=== PATIENT | female | born 1960 | race Caucasian/White ===

== ENCOUNTER 2021-11-05 14:03 | Emergency (ER) | payer OTHER ==
[~2021-11-05] VITALS: Ht 165.1 cm; Wt 70.3 kg
[2021-11-05] MEDS ORDERED: SODIUM CHLORIDE 0.9% 1,000 ML IV ONE (14:45)
[2021-11-05 15:26] LABS: Basophils # (auto) 0 10 ^3/uL (0-0.2); Basophils % (auto) 0.4 % (0.0-2.0); Eosinophils # (auto) 0 10 ^3/uL (0-0.8); Eosinophils % (auto) 0.1 % (0.0-7.0); Hemoglobin 11.5 g/dL (12.2-16.2); Mean Corpuscular Hemoglobin 28.7 pg (28.0-32.0); Mean Corpuscular Hgb Conc. 33.9 g/dL (32.0-36.0); Mean Corpuscular Volume 84.9 fL (80.0-100.0); Monocytes # (auto) 0.6 10 ^3/uL (0-1.3); Monocytes % (auto) 5.6 % (0.0-12.0); Neutrophils # (auto) 8.4 10 ^3/uL (1.6-8.6); Neutrophils % (auto) 83.9 % (37.0-80.0); Nucleated Red Blood Cells % 0.1 %; Red Cell Distribution Width 14.4 % (11.8-14.3); White Blood Cell 10.1 10^3/uL (4.4-10.8)
[2021-11-05 15:43] LABS: Albumin 2.4 g/dL (3.4-5.0); BUN/Creatinine Ratio 17.5; Calcium 8.4 mg/dL (8.5-10.1); Potassium 3.7 mmol/L (3.5-5.1)
[2021-11-05 15:46] LABS: Bilirubin, Total 0.4 mg/dL (0.2-1.0); Total Protein 5.9 g/dL (6.4-8.2)
[2021-11-05] MEDS ORDERED: cefTRIAXone 1GM/50ML D5W 50 ML IV ONE (17:15)
[2021-11-05] MEDS ORDERED: AZITHROMYCIN 500MG/ 250ML 250 ML IV ONE ×2 (17:15→18:30)
[2021-11-05 17:16] LABS: Urine Bacteria NONE SEEN /hpf (None Seen); Urine Blood Negative /uL (Negative); Urine Specific Gravity 1.018 (1.001-1.035); Urine WBC 2 /hpf (0 - 5)
[2021-11-05 18:00] VITALS: BP 113/64
[2021-11-05] MEDS ORDERED: PROM2SYP2 PO (18:17)
[2021-11-05] MEDS ORDERED: CEFD300C2 PO (18:17)
== END 2021-11-05 19:23 | disposition home or self-care (01) ==
LOC: ER 14:03 → EDBD 14:03 → ER 16:51
DX: J18.9 Pneumonia, unspecified organism (principal); E43 Unspecified severe protein-calorie malnutrition; E05.80 Other thyrotoxicosis without thyrotoxic crisis or storm; N30.90 Cystitis, unspecified without hematuria; Z88.2 Allergy status to sulfonamides; Z88.6 Allergy status to analgesic agent; Z85.118 Personal history of other malignant neoplasm of bronchus and lung
CPT/HCPCS: 36415; 71046; 80053; 81001; 83735; 84443; 84484; 85025; 87040; 93005; 96361; 96365; 96375; 99285; J0456; J0696; J7030; 96367

== ENCOUNTER 2021-11-12 14:59 | Inpatient (IN) | payer OTHER ==
[~2021-11-12] VITALS: Ht 165.1 cm; Wt 74.0 kg
[~2021-11-12 14:59] MED LIST: CEFD300C2 PO; PROM2SYP2 PO
[2021-11-12] MEDS ORDERED: ALBUTEROL SULF 2.5 MG/0.5ML(0.5%) NEB SOLN NEB ONE (15:15)
[2021-11-12] MEDS ORDERED: methylPREDNISolone SOD SUCC 125 MG/2 ML VL IV ONE (15:15)
[2021-11-12] MEDS ORDERED: levoFLOXacin 500MG 100 ML IV ONE (15:15)
[2021-11-12 15:45] LABS: Basophils # (auto) 0 10 ^3/uL (0-0.2); Basophils % (auto) 0.3 % (0.0-2.0); Eosinophils # (auto) 0 10 ^3/uL (0-0.8); Eosinophils % (auto) 0.4 % (0.0-7.0); Hematocrit 32.4 % (36.0-46.0); Lymphocytes # (auto) 0.9 10 ^3/uL (0.4-5.4); Mean Corpuscular Hemoglobin 28.8 pg (28.0-32.0); Mean Corpuscular Hgb Conc. 34.1 g/dL (32.0-36.0); Mean Corpuscular Volume 84.5 fL (80.0-100.0); Monocytes # (auto) 0.1 10 ^3/uL (0-1.3); Monocytes % (auto) 0.6 % (0.0-12.0); Neutrophils # (auto) 9.1 10 ^3/uL (1.6-8.6); Neutrophils % (auto) 89.7 % (37.0-80.0); Nucleated Red Blood Cells % 0.2 %; Red Blood Cells 3.83 10^6/uL (4.0-5.20); Red Cell Distribution Width 14.8 % (11.8-14.3); White Blood Cell 10.2 10^3/uL (4.4-10.8)
[2021-11-12 16:00] LABS: BUN/Creatinine Ratio 21.3; Calcium 7.2 mg/dL (8.5-10.1); Potassium 3.9 mmol/L (3.5-5.1)
[2021-11-12 16:09] LABS: Bilirubin, Total 0.6 mg/dL (0.2-1.0); Total Protein 5.7 g/dL (6.4-8.2)
[2021-11-12 17:15] LABS: INR 1.21 (0.9-1.15)
[2021-11-12] MEDS ORDERED: IPRATROPIUM BROM 0.5 MG/2.5ML INH SOL NEB PRN (22:15)
[2021-11-12] MEDS: SODIUM CHLORIDE 0.9% 1,000 ML IV SCH (22:15)
[2021-11-12] MEDS ORDERED: ACETAMINOPHEN 325 MG TAB PO PRN (22:15)
[2021-11-12] MEDS ORDERED: ALBUTEROL SULF 2.5 MG/0.5ML(0.5%) NEB SOLN NEB PRN (22:15)
[2021-11-12] MEDS ORDERED: HYDROcodone-ACET 5/325MG TAB PO PRN (22:15)
[2021-11-12] MEDS: ALBUMIN 25% 100 ML IV SCH (22:15)
[2021-11-12] MEDS ORDERED: ONDANSETRON HCL 4 MG/2 ML VIAL IV PRN (22:15)
[2021-11-12] MEDS ORDERED: DOCUSATE SOD 100 MG CAP PO PRN (22:15)
[2021-11-12] MEDS ORDERED: ENOXAPARIN SOD 80 MG/0.8ML SYRINGE SC ONE (22:15)
[2021-11-12] MEDS ORDERED: IOHEXOL 350 MG/ML 100ML IJ ONE (22:36)
[2021-11-12 22:47] VITALS: BP 102/94
[2021-11-12] MEDS ORDERED: MORPHINE SULFATE INJ 2 MG/ml SYRG IV PRN (23:15)
[2021-11-12] MEDS ORDERED: NITROGLYCERIN 0.4 MG SL TAB SL PRN (23:15)
[2021-11-13] MEDS: SODIUM CHLORIDE 0.9% 1,000 ML IV SCH (00:37)
[2021-11-13] MEDS ORDERED: METH10TA2 PO (03:11)
[2021-11-13 04:09] VITALS: BP 115/59
[2021-11-13] MEDS ORDERED: HYDR4TAB2 PO (04:36)
[2021-11-13] MEDS ORDERED: BUPR150T8 PO (04:36)
[2021-11-13] MEDS ORDERED: MIRT1TAB38 PO (04:36)
[2021-11-13] MEDS ORDERED: FOLI400T34 PO (04:36)
[2021-11-13] MEDS ORDERED: OXY5T PO (04:36)
[2021-11-13] MEDS ORDERED: LEVO100T8 PO (04:40)
[2021-11-13 05:00] VITALS: BP 110/61
[2021-11-13] MEDS ORDERED: METHADONE HCL 10 MG TAB PO SCH (05:00)
[2021-11-13] MEDS: ALBUMIN 25% 100 ML IV SCH ×2 (05:09→15:07)
[2021-11-13] MEDS ORDERED: methylPREDNISolone SOD SUCC 40 MG/ML VL IV SCH (06:00)
[2021-11-13] MEDS: LEVOTHYROXINE SODIUM 100 MCG TAB PO SCH (06:33)
[2021-11-13 08:41] LABS: Basophils # (auto) 0 10 ^3/uL (0-0.2); Basophils % (auto) 0.5 % (0.0-2.0); Eosinophils # (auto) 0 10 ^3/uL (0-0.8); Hemoglobin 9.2 g/dL (12.2-16.2); Lymphocytes # (auto) 0.3 10 ^3/uL (0.4-5.4); Lymphocytes % (auto) 4.3 % (10.0-50.0); Mean Corpuscular Hemoglobin 28.9 pg (28.0-32.0); Mean Corpuscular Hgb Conc. 34.1 g/dL (32.0-36.0); Mean Corpuscular Volume 84.6 fL (80.0-100.0); Monocytes # (auto) 0 10 ^3/uL (0-1.3); Monocytes % (auto) 0.5 % (0.0-12.0); Neutrophils # (auto) 7.4 10 ^3/uL (1.6-8.6); Neutrophils % (auto) 94.7 % (37.0-80.0); Red Blood Cells 3.19 10^6/uL (4.0-5.20); Red Cell Distribution Width 14.6 % (11.8-14.3); White Blood Cell 7.8 10^3/uL (4.4-10.8)
[2021-11-13 09:00] VITALS: BP 101/58
[2021-11-13] MEDS ORDERED: levoFLOXacin 500MG 100 ML IV SCH ×2 (09:00→10:00)
[2021-11-13 09:03] LABS: Potassium 3.4 mmol/L (3.5-5.1)
[2021-11-13 09:08] LABS: BUN/Creatinine Ratio 26.2; Bilirubin, Total 0.5 mg/dL (0.2-1.0); Calcium 7.3 mg/dL (8.5-10.1); Total Protein 6.3 g/dL (6.4-8.2)
[2021-11-13] MEDS ORDERED: ENOXAPARIN SOD 80 MG/0.8ML SYRINGE SC SCH (10:00)
[2021-11-13] MEDS: AZITHROMYCIN 500MG/ 250ML 250 ML IV SCH (10:43)
[2021-11-13] MEDS: FAMOTIDINE (10MG/ML) 2ML VL IV SCH ×2 (10:43→22:22)
[2021-11-13] MEDS: ZINC SULFATE 220mg CAP or TAB PO SCH (10:43)
[2021-11-13] MEDS: ASCORBIC ACID 500 MG TAB PO SCH ×2 (10:44→22:22)
[2021-11-13] MEDS: MULTIPLE VITAMIN TAB PO SCH (10:44)
[2021-11-13 13:00] VITALS: BP 98/56
[2021-11-13] MEDS: METHADONE HCL 10 MG TAB PO SCH ×2 (13:02→21:59)
[2021-11-13] MEDS ORDERED: cefTRIAXone 1GM/50ML D5W 50 ML IV ONE (14:00)
[2021-11-13] MEDS ORDERED: POTASSIUM CHL 20 Meq TABLET PO ONE (14:00)
[2021-11-13 17:00] VITALS: BP 97/62
[2021-11-13] MEDS ORDERED: oxyCODONE ER 10 MG TAB PO ONE (17:45)
[2021-11-13] MEDS ORDERED: oxyCODONE HCL 5MG TAB PO PRN ×2 (18:15→18:45)
[2021-11-13 22:00] VITALS: BP 97/51
[2021-11-13] MEDS: methylPREDNISolone SOD SUCC 40 MG/ML VL IV SCH (22:22)
[2021-11-13] MEDS: ENOXAPARIN SOD 80 MG/0.8ML SYRINGE SC SCH (22:22)
[2021-11-14] VITALS (8 sets, daily range): BP systolic 91–104; BP diastolic 53–68
[2021-11-14] MEDS: SODIUM CHLORIDE 0.9% 1,000 ML IV SCH (00:05)
[2021-11-14] MEDS: oxyCODONE HCL 5MG TAB PO PRN ×3 (01:36→18:58)
[2021-11-14 05:08] LABS: Basophils # (auto) 0 10 ^3/uL (0-0.2); Basophils % (auto) 0.2 % (0.0-2.0); Eosinophils # (auto) 0 10 ^3/uL (0-0.8); Hematocrit 24.4 % (36.0-46.0); Hemoglobin 8.4 g/dL (12.2-16.2); Lymphocytes # (auto) 0.3 10 ^3/uL (0.4-5.4); Lymphocytes % (auto) 2.8 % (10.0-50.0); Mean Corpuscular Hemoglobin 28.9 pg (28.0-32.0); Mean Corpuscular Hgb Conc. 34.2 g/dL (32.0-36.0); Mean Corpuscular Volume 84.5 fL (80.0-100.0); Monocytes # (auto) 0 10 ^3/uL (0-1.3); Monocytes % (auto) 0.3 % (0.0-12.0); Neutrophils # (auto) 9.5 10 ^3/uL (1.6-8.6); Neutrophils % (auto) 96.7 % (37.0-80.0); Red Blood Cells 2.89 10^6/uL (4.0-5.20); Red Cell Distribution Width 14.6 % (11.8-14.3); White Blood Cell 9.8 10^3/uL (4.4-10.8)
[2021-11-14] MEDS: METHADONE HCL 10 MG TAB PO SCH ×2 (05:19→13:13)
[2021-11-14 05:20] LABS: Calcium 7.1 mg/dL (8.5-10.1); Magnesium 2.5 mg/dL (1.6-2.6); Potassium 3.8 mmol/L (3.5-5.1)
[2021-11-14 05:26] LABS: Albumin 2.8 g/dL (3.4-5.0); BUN/Creatinine Ratio 32.1; Bilirubin, Total 0.4 mg/dL (0.2-1.0)
[2021-11-14 05:29] LABS: INR 1.1 (0.9-1.15)
[2021-11-14] MEDS: LEVOTHYROXINE SODIUM 100 MCG TAB PO SCH (06:04)
[2021-11-14] MEDS ORDERED: cefTRIAXone 1GM/50ML D5W 50 ML IV SCH (09:00)
[2021-11-14] MEDS: MULTIPLE VITAMIN TAB PO SCH (10:38)
[2021-11-14] MEDS: ZINC SULFATE 220mg CAP or TAB PO SCH (10:38)
[2021-11-14] MEDS: ASCORBIC ACID 500 MG TAB PO SCH (10:38)
[2021-11-14] MEDS: FAMOTIDINE (10MG/ML) 2ML VL IV SCH (10:39)
[2021-11-14] MEDS: methylPREDNISolone SOD SUCC 40 MG/ML VL IV SCH (10:39)
[2021-11-14] MEDS: AZITHROMYCIN 500MG/ 250ML 250 ML IV SCH (10:39)
[2021-11-14] MEDS: ENOXAPARIN SOD 80 MG/0.8ML SYRINGE SC SCH (10:40)
[2021-11-14 15:16] LABS: Urine Bacteria NONE SEEN /hpf (None Seen); Urine Blood Negative /uL (Negative); Urine Specific Gravity 1.025 (1.001-1.035); Urine WBC 22 /hpf (0 - 5)
[2021-11-14] MEDS ORDERED: methylPREDNISolone SOD SUCC 40 MG/ML VL IV SCH (22:00)
== END 2021-11-14 21:20 | disposition short-term general hospital (02) | DRG 871 ==
LOC: EDBD 14:59 → ER 14:59 → TELE 23:01 → TELE-WESTW 11-13 02:30
PROVIDERS: ADMIT Nurse Practitioner Family; ATTEND Internal Medicine
DX: A41.9 Sepsis, unspecified organism (principal); I26.99 Other pulmonary embolism without acute cor pulmonale; J18.9 Pneumonia, unspecified organism; I21.A1 Myocardial infarction type 2; J96.20 Acute and chronic respiratory failure, unspecified whether with hypoxia or hypercapnia; I82.402 Acute embolism and thrombosis of unspecified deep veins of left lower extremity; C79.51 Secondary malignant neoplasm of bone; C34.90 Malignant neoplasm of unspecified part of unspecified bronchus or lung; J91.0 Malignant pleural effusion; E88.09 Other disorders of plasma-protein metabolism, not elsewhere classified; R79.89 Other specified abnormal findings of blood chemistry; Z20.822 Contact with and (suspected) exposure to COVID-19; D63.8 Anemia in other chronic diseases classified elsewhere; D69.59 Other secondary thrombocytopenia; E87.6 Hypokalemia; E03.9 Hypothyroidism, unspecified; E78.5 Hyperlipidemia, unspecified; F32.A Depression, unspecified; F41.9 Anxiety disorder, unspecified; Z79.01 Long term (current) use of anticoagulants; Z85.118 Personal history of other malignant neoplasm of bronchus and lung; Z85.3 Personal history of malignant neoplasm of breast; Z86.711 Personal history of pulmonary embolism; Z86.718 Personal history of other venous thrombosis and embolism; Z90.49 Acquired absence of other specified parts of digestive tract; Z88.5 Allergy status to narcotic agent; Z88.2 Allergy status to sulfonamides
CPT/HCPCS: 36415; 36600; 71275; 80053; 80061; 81001; 82805; 83036; 83605; 83735; 83880; 84443; 84484; 85025; 85379; 85610; 85730; 87040; 93005; 93306; 93971; 94640; 96365; 96372; 96375; 99291; G0378; J0696; J1956; J3490; P9047